=== PATIENT | male | born 2000 | race Caucasian/White ===

== ENCOUNTER → 2019-11-12 | Outpatient (CLI) | payer OTHER ==
--- NOTE | 2019-11-12 16:14 | REP ---
Right foot series: Four views. History: Injury. Findings: Four views right foot demonstrate anterolateral soft-tissue swelling over the midfoot. Overall mineralization pattern is normal. No fracture or subluxation is seen. Impression: No fracture noted. Dorsal lateral midfoot soft tissue swelling. Electronically Signed by Corbin Pittman MD 11/12/2019 04:05 P
== END ==
LOC: M LRY 14:39
PROVIDERS: ATTEND Nurse Practitioner Family
DX: S99.921A Unspecified injury of right foot, initial encounter (principal); X58.XXXA Exposure to other specified factors, initial encounter; Y92.89 Other specified places as the place of occurrence of the external cause
CPT/HCPCS: 73630; G0463